=== PATIENT | female | born 1960 | race Two or more races ===

== ENCOUNTER 2023-08-13 20:32 | Emergency (ER) | payer MEDICAID ==
[~2023-08-13] VITALS: Ht 165.1 cm; Wt 63.6 kg
[2023-08-13 21:36] LABS: BASOPHILS # (AUTO) 0.1 K/UL (0.0-0.2); BASOPHILS % (AUTO) 1.1 % (0.0-2.0); EOSINOPHILS # (AUTO) 0.1 K/uL (0.0-0.7); HEMATOCRIT 40.9 % (31.2-41.9); HEMOGLOBIN 13.7 g/dL (10.9-14.3); LYMPHOCYTES % (AUTO) 33.5 % (20.5-51.5); MEAN CORPUSCULAR HEMOGLOBIN 29.9 uug (24.7-32.8); MEAN CORPUSCULAR HGB CONC 34 g/dL (32.3-35.6); MONOCYTES # (AUTO) 0.4 K/uL (0.1-1.30); MONOCYTES % (AUTO) 7.2 % (0.0-11.0); NEUTROPHILS # (AUTO) 3.3 K/uL (1.8-8.9); NEUTROPHILS % (AUTO) 56.2 % (38.5-71.5); PLATELET COUNT (AUTO) 228 K/uL (179-408); RED BLOOD CELL COUNT(AUTO) 4.59 MIL/uL (3.63-4.92); RED CELL DISTRIBUTION WIDTH 13.5 % (12.3-17.7)
[2023-08-13 21:43] LABS: DIFFERENTIAL COMMENT 1
[2023-08-13 21:53] LABS: ALANINE AMINOTRANSFERASE 37 U/L (14-59); ALBUMIN 3.4 g/dL (3.4-5.0); ALKALINE PHOSPHATASE 127 U/L (50-136); ASPARTATE AMINOTRANSFERASE 25 U/L (15-37); BILIRUBIN,DIRECT 0.1 mg/dL (0.0-0.2); BILIRUBIN,TOTAL 0.4 mg/dL (0.2-1.0); CALCIUM 8.9 mg/dL (8.5-10.1); CARBON DIOXIDE 25 mmol/L (21-32); CHLORIDE 106 mmol/L (98-107); CREATININE 1.1 mg/dL (0.6-1.3); GLUCOSE 160 mg/dL (74-106); POTASSIUM 3.5 mmol/L (3.5-5.1); SODIUM SERUM 141 mmol/L (136-145); UREA NITROGEN, BLOOD 20 mg/dL (7-18)
[2023-08-13] MEDS: ACETAMINOPHEN 325 MG TABLET PO ONE (22:41)
[2023-08-14 01:01] VITALS: O2SAT 97
== END 2023-08-14 01:39 | disposition short-term general hospital (02) ==
LOC: ER 20:35
DX: R07.89 Other chest pain (principal); R42 Dizziness and giddiness; R51.9 Headache, unspecified; R03.0 Elevated blood-pressure reading, without diagnosis of hypertension; I63.9 Cerebral infarction, unspecified; R20.2 Paresthesia of skin; E78.5 Hyperlipidemia, unspecified; Z98.890 Other specified postprocedural states
CPT/HCPCS: 36415; 70450; 71045; 84484; 85025; 85730; 93005; A4606; A4663

== ENCOUNTER 2024-10-19 12:13 | Emergency (ER) | payer OTHER ==
[~2024-10-19] VITALS: Ht 165.1 cm; Wt 63.5 kg
[2024-10-19] MEDS ORDERED: ASPI-1420 MT (12:27)
[2024-10-19] MEDS ORDERED: ATOR20TA PO (12:27)
[2024-10-19 12:54] LABS: PLATELET COUNT (AUTO) 219 K/uL (179-408); RED BLOOD CELL COUNT(AUTO) 4.94 MIL/uL (3.63-4.92); RED CELL DISTRIBUTION WIDTH 13.6 % (12.3-17.7); WHITE BLOOD COUNT (AUTO) 6.2 K/uL (3.8-11.8)
[2024-10-19 13:07] LABS: CREATININE 1.2 mg/dL (0.6-1.3); SODIUM SERUM 140 mmol/L (136-145); UREA NITROGEN, BLOOD 23 mg/dL (7-18)
[2024-10-19 13:18] LABS: ASPARTATE AMINOTRANSFERASE 22 U/L (15-37); TOTAL PROTEIN, SERUM 6.7 g/dL (6.4-8.2)
[2024-10-19] MEDS ORDERED: IV NORMAL SALINE 250 ML IV ONE (14:18)
[2024-10-19] MEDS ORDERED: IOHEXOL 350 100 ML INFUS..BTL ONE (14:18)
[2024-10-19] MEDS ORDERED: SWABABLE VALVE TRANSFER SET EA MC ONE (14:18)
[2024-10-19] MEDS ORDERED: ONDANSETRON 4 MG/2 ML VIAL ONE (14:49)
[2024-10-19] MEDS ORDERED: MORPHINE SULFATE 4 MG/1 ML DISP.SYRIN ONE (14:49)
[2024-10-19] MEDS: MORPHINE SULFATE 4 MG/1 ML DISP.SYRIN IV ONE (15:00)
[2024-10-19] MEDS: ONDANSETRON 4 MG/2 ML VIAL IV ONE (15:01)
[2024-10-19 18:00] VITALS: O2SAT 97
== END 2024-10-19 18:33 | disposition short-term general hospital (02) ==
LOC: ER 12:13
DX: G82.20 Paraplegia, unspecified (principal); R07.81 Pleurodynia; E78.5 Hyperlipidemia, unspecified; I69.354 Hemiplegia and hemiparesis following cerebral infarction affecting left non-dominant side; M79.604 Pain in right leg; M79.605 Pain in left leg; R10.9 Unspecified abdominal pain; R53.1 Weakness; Z79.82 Long term (current) use of aspirin; Z79.899 Other long term (current) drug therapy; Z87.19 Personal history of other diseases of the digestive system
CPT/HCPCS: 36415; 70450; 71045; 84484; 85025; 85651; 85730; A4606; A4663; J2270; J2405; Q9967